=== PATIENT | female | born 1940 | race Caucasian/White ===

== ENCOUNTER 2022-06-17 12:02 | Outpatient (CLI) | payer MEDICARE, OTHER ==
[~2022-06-17 12:02] MED LIST: Magnevist 469MG/ML 20 ML VIAL ONE
== END 2022-06-17 12:03 | disposition home or self-care (01) ==
LOC: CSHMRI 12:02
PROVIDERS: ATTEND Neurological Surgery
DX: M46.1 Sacroiliitis, not elsewhere classified (principal); G95.9 Disease of spinal cord, unspecified; C79.51 Secondary malignant neoplasm of bone; S22.080A Wedge compression fracture of T11-T12 vertebra, initial encounter for closed fracture; M51.36 Other intervertebral disc degeneration, lumbar region; M48.061 Spinal stenosis, lumbar region without neurogenic claudication; M48.07 Spinal stenosis, lumbosacral region; M53.86 Other specified dorsopathies, lumbar region
CPT/HCPCS: 72157; 72158; A9579